=== PATIENT | female | born 2000 | race Caucasian/White ===

== ENCOUNTER 2022-07-10 13:38 | Emergency (ER) | payer OTHER ==
[~2022-07-10] VITALS: Ht 172.7 cm; Wt 62.8 kg
[2022-07-10 14:04] VITALS: BP 112/68
--- NOTE | 2022-07-10 14:05 | NUR ---
BIB MOTHER C/O 10/27 MID ABDOMINAL PAIN, N/V/D X 5 DAYS. PMH:CELIAC DISEASE
[2022-07-10 14:57] LABS: BASOPHILS # (AUTO) 0.1 K/uL (0.00-0.22); BASOPHILS % (AUTO) 0.5 % (0.0-2.0); EOSINOPHILS # (AUTO) 0.9 K/uL (0-0.4); EOSINOPHILS % (AUTO) 7.5 % (0.0-4.0); HEMATOCRIT 43.2 % (36-48); HEMOGLOBIN 14.3 g/dL (12.0-16.0); LYMPHOCYTES # (AUTO) 1.8 K/uL (2.5-16.5); LYMPHOCYTES % (AUTO) 15.6 % (20.5-51.1); MEAN CORPUSCULAR HEMOGLOBIN 30 pg (27-31); MEAN CORPUSCULAR HGB CONC 33 g/dL (33-37); MEAN CORPUSCULAR VOLUME 91.5 fL (80-94); MONOCYTES # (AUTO) 0.6 K/uL (0.8-1.0); MONOCYTES % (AUTO) 5.3 % (1.7-9.3); NEUTROPHILS # (AUTO) 8.2 K/uL (1.8-7.7); NEUTROPHILS % (AUTO) 71.1 % (42.2-75.2); PLATELET COUNT (AUTO) 367 K/uL (140-450); RED BLOOD CELL COUNT(AUTO) 4.73 MIL/uL (4.20-5.40); RED CELL DISTRIBUTION WIDTH 12.7 % (11.6-13.7); WHITE BLOOD COUNT (AUTO) 11.5 K/uL (4.5-11.0)
[2022-07-10 15:24] LABS: ANION GAP 10.2 (8-16); CARBON DIOXIDE 29.7 mmol/L (21-32); CREATININE 0.9 mg/dL (0.6-1.3); POTASSIUM 3.9 mmol/L (3.5-5.1); TOTAL BILIRUBIN 0.5 mg/dL (0.0-1.0)
[2022-07-10 15:44] LABS: APPEARANCE,URINE CLEAR (CLEAR); BILIRUBIN,URINE NEGATIVE (NEGATIVE); BLOOD, URINE NEGATIVE (NEGATIVE); COLOR,URINE YELLOW (YELLOW); LEUKOCYTE ESTERASE ,URINE NEGATIVE (NEGATIVE); NITRITE, URINE NEGATIVE (NEGATIVE); UGLUCOSE NEGATIVE (NEGATIVE)
[2022-07-10] MEDS ORDERED: BISM262C53 PO (17:19)
[2022-07-10] MEDS ORDERED: NAPR-1704 PO (17:19)
[2022-07-10] MEDS ORDERED: LOPE1TAB14 PO (17:19)
[2022-07-10] MEDS ORDERED: ONDA-188 SL (17:19)
[2022-07-10 17:58] VITALS: BP 117/78
--- NOTE | 2022-07-10 17:58 | NUR ---
Patient discharged with v/s stable. Written and verbal after care instructions FOR BLAND DIET AND VIRAL GASTROENTERITIS given and explained. Patient alert, oriented and verbalized understanding of instructions. Ambulatory with steady gait. All questions addressed prior to discharge. ID band removed. Patient advised to follow up with PMD. Rx of PEPTO BISMOL, IMODIUM, NAPROXEN, AND ZOFRAN OTC given. Opportunity to ask questions provided and answered.
== END 2022-07-10 17:58 | disposition home or self-care (01) ==
LOC: MED 13:38
DX: A08.4 Viral intestinal infection, unspecified (principal); R11.2 Nausea with vomiting, unspecified; R19.7 Diarrhea, unspecified; Z79.899 Other long term (current) drug therapy
CPT/HCPCS: 36415; 80053; 81003; 81025; 83690; 85025; 99284